=== PATIENT | female | born 1975 | race Caucasian/White ===

== ENCOUNTER 2022-03-04 05:26 | Outpatient (CLI) | payer BC ==
[~2022-03-04] VITALS: Ht 182.9 cm; Wt 140.2 kg
[2022-03-04] MEDS ORDERED: OMEP40CA6 PO (10:14)
[2022-03-04] MEDS ORDERED: CITA40TA13 PO (10:14)
[2022-03-04] MEDS ORDERED: LEVO150C4 PO (10:14)
== END 2022-03-04 12:41 | disposition home or self-care (01) ==
LOC: PREOP 05:26
PROVIDERS: ATTEND Internal Medicine
DX: Z01.818 Encounter for other preprocedural examination (principal)

== ENCOUNTER 2022-03-12 06:56 | Day surgery (SDC) | payer BC ==
--- NOTE | 2022-03-04 08:31 | HISTORY AND PHYSICAL ---
DATE OF SERVICE: COLONOSCOPY HISTORY AND PHYSICAL HISTORY OF PRESENT ILLNESS: The patient is a 46-year-old white female referred by Dr. Candy Engle at [facility] for surveillance colonoscopy. She is deemed to be of higher than average risk as her mother was diagnosed with colorectal cancer in her 50s. She has three aunts and multiple cousins all on her mother's side have all been diagnosed with early colon cancer. Her last colonoscopy was 6 years ago done elsewhere, at which time no polyps were noted. She reports that she does have what she presumes be a hemorrhoid that she has not had any bleeding problems, but has some prolapsing tissue that occurs with some pressure during flares, which are infrequent in between flares. She is not aware of any abnormalities on wiping. She denies any bowel habit change, diarrhea, constipation, abdominal pain or change in weight. FAMILY HISTORY: As noted in the HPI. PAST SURGICAL HISTORY: She had a D and C number of years ago with no other reported surgeries. PAST MEDICAL HISTORY: Gastroesophageal reflux, Yung's thyroiditis, on thyroid replacement and anxiety for which she takes Celexa. 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 REVIEW OF SYSTEMS: CONSTITUTIONAL: Denies night sweats, chills, fever, change in weight. PULMONARY: Denies cough or wheezing, shortness of breath. CARDIOVASCULAR: Denies chest pain, orthopnea, PND, pedal edema or syncope. GASTROINTESTINAL: As noted in the HPI. PHYSICAL EXAMINATION: GENERAL: Reveals a pleasant white female, appears to be in no acute distress. VITAL SIGNS: Blood pressure 130/96, weight 307 pounds. HEENT: Unremarkable. Sclerae nonicteric. CHEST: Clear to auscultation. CARDIOVASCULAR: Reveals a regular rate and rhythm without murmur, S3 or S4. ABDOMEN: Soft, supple without mass, organomegaly, tenderness or bruits. Bowel sounds positive. EXTREMITIES: Reveal no cyanosis, clubbing or edema. ASSESSMENT AND PLAN: The patient is being set up for screening colonoscopy much higher than average risk considering her mother was diagnosed with relatively early colon cancer in her late 50s with three aunts and multiple cousins all on her mother's side with colon cancer. I thank you for the referral of this pleasant lady. Job ID: [id number] DocumentID: [id number] Dictated Date: 02/15/2022 16:08:40 Toll Mechanic Date: 02/15/2022 17:03:07 Dictated By: NICOLAS ROBERTO MD
[~2022-03-12] VITALS: Ht 183 cm; Wt 140.2 kg
[~2022-03-12 06:56] MED LIST: CITA40TA13 PO; LEVO150C4 PO; OMEP40CA6 PO
[2022-03-12] MEDS ORDERED: LACTATED RINGERS 1,000 ML IV STA (07:08)
[2022-03-12] MEDS ORDERED: MIDAZOLAM 2 MG/2 ML (VERSED) VIAL ONE (07:31)
[2022-03-12] MEDS ORDERED: PROPOFOL INJECTION 50 ML IV ONE (07:31)
[2022-03-12 07:33] VITALS: BP 123/74
--- NOTE | 2022-03-12 07:36 | Pre-Op Note & Conscious Sedat ---
Pre-Operative Progress Note H&P Reviewed The H&P was reviewed, patient examined and no changes noted. Date H&P Reviewed: Mar 12, 2022 Time H&P Reviewed: 07:36 Conscious Sedation Pre-Proced ASA Score 2 For ASA 3 and 4: Consider anesthesia and medical clearance. Also, for patients with a history of failed moderate sedation consider anesthesia. Airway Lungs Heart ASA score ASA 1: a normal healthy patient ASA 2: a patient with a mild systemic disease (mid diabetes, controlled hypertension, obesity ASA 3: a patient with a severe systemic disease that limits activity (angina, COPD, prior Myocardial infarction) ASA 4: a patient with an incapacitating disease that is a constant threat to life (CHF, renal failure) ASA 5: a moribund patient not expected to survive 24 hrs. (ruptured aneurysm) ASA 6: a declared brain- patient whose organs are being harvested. For emergent operations, add the letter E after the classification Mallampati Classification Grade 2 Sedation Plan Analgesia, Amnesia, Plan communicated to team members, Discussed options with patient/fam, Discussed risks with patient/fam The patient is an appropriate candidate to undergo the planned procedure, sedation, and anesthesia. The patient immediately re-assessed prior to indication. NICOLAS ROBERTO MD Mar 12, 2022 07:36
[2022-03-12 08:30] VITALS: BP 110/67
[2022-03-12 08:32] VITALS: BP 110/67
[2022-03-12 08:51] VITALS: BP 98/58
[2022-03-12 08:57] VITALS: BP 98/58
--- NOTE | 2022-03-12 13:19 | OPERATIVE REPORT ---
DATE OF SERVICE: COLONOSCOPY SUMMARY INDICATION FOR THE PROCEDURE: Screening colonoscopy and family history for colon cancer. DESCRIPTION OF PROCEDURE: The patient was placed in the left lateral decubitus position. Prior to undergoing colonoscopy, a digital rectal evaluation was performed. Anal sphincter tone was normal. The perianal reflexes intact. There was some redundant perianal tissue, but no evidence for internal or external hemorrhoids. The colonoscope was then inserted into the rectum and under direct visualization advanced to the cecum. The cecum was identified by identification of the ileocecal valve and cecal strap. Photographic documentation was obtained. Quality of the prep was good. FINDINGS: There was no evidence for internal or external hemorrhoids, but again noted some a prominent perianal skin fold. The rectum was unremarkable. Present in the mid sigmoid colon was a diminutive 2 mm sessile polyp. It was biopsied and removed in its entirety with cold forceps. The remainder of the sigmoid colon was unremarkable with no evidence for diverticular disease. The descending colon, splenic flexure, transverse colon, and hepatic flexure were unremarkable. Present in the mid ascending colon was another diminutive 2 mm sessile polyp. It was biopsied and ablated and submitted for histopathology. The cecum and the colon was unremarkable. ASSESSMENT: Two diminutive polyps were removed via cold forceps polypectomy. As long as there are no surprises on histopathology report considering family history, we will advocate repeat screening colonoscopy in five years. This was an otherwise unremarkable colonoscopy under good prep conditions. I thank you for the referral of this pleasant lady. CC: Candy Engle MD - requested, unable to deliver. Job ID: [id number] DocumentID: [id number] Dictated Date: 03/12/2022 08:31:32 Retail Pharmacy Merchandiser Date: 03/12/2022 13:17:21 Dictated By: NICOLAS ROBERTO MD
--- NOTE | 2022-03-12 13:56 | Anesthesia-General Post-Op ---
MAC Patient Condition Mental Status/LOC: Same as Preop Cardiovascular: Satisfactory Nausea/Vomiting: Absent Respiratory: Satisfactory Pain: Controlled Complications: Absent Post Op Complications Complications None Follow Up Care/Instructions Patient Instructions None needed. Anesthesiology Discharge Order Discharge Order Patient is doing well, no complaints, stable vital signs, no apparent adverse anesthesia problems. No complications reported per nursing. JOSHUA JOSHI CRNA Mar 12, 2022 13:56
== END 2022-03-12 08:59 | disposition home or self-care (01) ==
LOC: ENDO 06:56
PROVIDERS: ATTEND Internal Medicine
DX: Z12.11 Encounter for screening for malignant neoplasm of colon (principal); K63.5 Polyp of colon; E06.3 Autoimmune thyroiditis; F41.9 Anxiety disorder, unspecified; Z79.890 Hormone replacement therapy; Z79.899 Other long term (current) drug therapy; Z80.0 Family history of malignant neoplasm of digestive organs